=== PATIENT | male | born 1930 | race Two or more races ===

== ENCOUNTER 2018-09-05 16:36 | Inpatient (IN) | payer MEDICARE, OTHER ==
[~2018-09-05] VITALS: Ht 175.3 cm; Wt 73.9 kg
[2018-09-05] MEDS ORDERED: ACET325T53 PO ×2 (16:59)
[2018-09-05] MEDS ORDERED: LOSA25TA3 PO (16:59)
[2018-09-05] MEDS ORDERED: INSU100I26 SQ (16:59)
[2018-09-05] MEDS ORDERED: CRAN450C PO (16:59)
[2018-09-05] MEDS ORDERED: PANT20TA2 PO (16:59)
[2018-09-05] MEDS ORDERED: MAG355OR18 PO (16:59)
[2018-09-05] MEDS ORDERED: NUTR1PAC14 PO (16:59)
[2018-09-05] MEDS ORDERED: MULT-213 PO (16:59)
[2018-09-05] MEDS ORDERED: SERT50TA PO (16:59)
[2018-09-05] MEDS ORDERED: ASCO500C18 PO (16:59)
[2018-09-05] MEDS ORDERED: MEMA10TA PO (16:59)
[2018-09-05] MEDS ORDERED: TRAZ-182 PO (16:59)
[2018-09-05] MEDS ORDERED: MAGN400O6 PO (16:59)
[2018-09-05] MEDS ORDERED: DONE10TA11 PO (16:59)
[2018-09-05] MEDS ORDERED: NA P133E RC (16:59)
[2018-09-05 17:03] LABS: BASOPHILS % (AUTO) 0.2 % (0.0-2.0); EOSINOPHILS # (AUTO) 0.1 K/uL (0.0-0.7); EOSINOPHILS % (AUTO) 0.6 % (0.0-7.0); HEMATOCRIT 37.9 % (36.7-47.1); LYMPHOCYTES # (AUTO) 0.5 K/uL (20.0-40.0); LYMPHOCYTES % (AUTO) 4.9 % (20.5-51.5); MEAN CORPUSCULAR HEMOGLOBIN 29.3 uug (23.8-33.4); MEAN CORPUSCULAR HGB CONC 32 g/dL (32.5-36.3); MEAN CORPUSCULAR VOLUME 92.8 fL (73.0-96.2); MONOCYTES # (AUTO) 0.5 K/uL (2.0-10.0); MONOCYTES % (AUTO) 4.5 % (0.0-11.0); NEUTROPHILS # (AUTO) 9.9 K/uL (1.8-8.9); NEUTROPHILS % (AUTO) 89.8 % (38.5-71.5); PLATELET COUNT (AUTO) 215 K/uL (152-348); RED BLOOD CELL COUNT(AUTO) 4.08 MIL/uL (4.06-5.63)
[2018-09-05 17:07] LABS: CARBON DIOXIDE 23 mmol/L (21-32); CHLORIDE 113 mmol/L (98-107); CREATININE 1.8 mg/dL (0.6-1.3); GLUCOSE 124 mg/dL (74-106); UREA NITROGEN, BLOOD 52 mg/dL (7-18)
[2018-09-05 17:17] LABS: POTASSIUM 6.3 mmol/L (3.5-5.1)
[2018-09-05 17:19] LABS: ALANINE AMINOTRANSFERASE 43 U/L (16-63); ALKALINE PHOSPHATASE 168 U/L (50-136); ASPARTATE AMINOTRANSFERASE 26 U/L (15-37); BILIRUBIN,DIRECT 0.1 mg/dL (0.0-0.2); BILIRUBIN,TOTAL 0.3 mg/dL (0.2-1.0); TOTAL PROTEIN, SERUM 7.1 g/dL (6.4-8.2)
[2018-09-05 17:21] LABS: ETHANOL < 3 MG/DL (0-0)
[2018-09-05] MEDS ORDERED: IV NORMAL SALINE 1000 ML BAG IV ONE (17:30)
[2018-09-05 17:31] LABS: *BILIRUBIN,URIN NEGATIVE (NEGATIVE); *BLOOD, URINE NEGATIVE (NEGATIVE); *CLARITY,URINE CLEAR (CLEAR); *COLOR,URINE YELLOW (YELLOW); *KETONES,URINE NEGATIVE (NEGATIVE); *UROBILINOGEN,URINE 0.2 E.U./dl (NORMAL); LEUKOCYTE ESTERASE ,URINE NEGATIVE (NEGATIVE); NITRITE, URINE NEGATIVE (NEGATIVE); UGLUCOSE NEGATIVE (NEGATIVE)
[2018-09-05 17:38] LABS: MUCUS,URINE FEW /LPF (0-FEW); URINE AMORPHOUS URATE MODERATE /HPF; WBC,URINE 0-3 /HPF (0-3)
[2018-09-05 17:42] LABS: *AMPHETAMINE, URINE NEGATIVE (NEGATIVE); *BARBITURATE, URINE NEGATIVE (NEGATIVE); *CANNABINOID, URINE NEGATIVE (NEGATIVE); *COCCAINE, URINE NEGATIVE (NEGATIVE); *OPIATE, URINE NEGATIVE (NEGATIVE); *PHENCYCLIDINE SCREEN,URINE NEGATIVE (NEGATIVE)
[2018-09-05 18:01] LABS: CARBON DIOXIDE 25 mmol/L (21-32); CHLORIDE 114 mmol/L (98-107); CREATININE 1.8 mg/dL (0.6-1.3); GLUCOSE 114 mg/dL (74-106); UREA NITROGEN, BLOOD 53 mg/dL (7-18)
[2018-09-05 18:05] LABS: POTASSIUM 6.7 mmol/L (3.5-5.1)
[2018-09-05] MEDS ORDERED: SODIUM POLYSTYRENE SULFONATE ENEMA 30 G/120 ML BOTTLE RC ONE ×2 (18:15→18:19)
[2018-09-05] MEDS ORDERED: DEXTROSE 10 % IN WATER 250 ML BAG IV ONE (18:15)
[2018-09-05] MEDS ORDERED: DEXTROSE 50% 50 ML DISP.SYRIN IV ONE (18:15)
[2018-09-05] MEDS ORDERED: SODIUM BICARBONATE 8.4% 50 MEQ/50 ML DISP.SYRIN IV ONE ×2 (18:15→18:16)
[2018-09-05] MEDS ORDERED: CALCIUM CHLORIDE 1 GM/10 ML DISP.SYRIN IVP ONE ×2 (18:15)
[2018-09-05] MEDS ORDERED: DEXTROSE 50% 50 ML DISP.SYRIN ONE (18:15)
[2018-09-05] MEDS ORDERED: INSULIN REGULAR, HUMAN 300 UNIT/3 ML VIAL IV ONE (18:15)
[2018-09-05] MEDS ORDERED: INSULIN REGULAR, HUMAN 300 UNIT/3 ML VIAL ONE (18:20)
[2018-09-05] MEDS ORDERED: ACETAMINOPHEN 325 MG TABLET PO PRN ×2 (18:45→19:00)
[2018-09-05] MEDS ORDERED: ONDANSETRON 4 MG/2 ML VIAL IV PRN (18:45)
[2018-09-05] MEDS ORDERED: MAGNESIUM HYDROXIDE 30 ML LIQUID UDC PO PRN (18:45)
[2018-09-05] MEDS ORDERED: TEMAZEPAM 15 MG CAPSULE PO PRN (18:45)
[2018-09-05] MEDS ORDERED: LORAZEPAM 2 MG/1 ML VIAL IV PRN (18:45)
[2018-09-05] MEDS ORDERED: HYDROCODONE/APAP 5-325MG TABLET PO PRN (18:45)
[2018-09-05] MEDS ORDERED: FLEET ENEMA 133 ML BOTTLE RC PRN (19:00)
[2018-09-05] MEDS ORDERED: INSULIN REGULAR, HUMAN 300 UNIT/3 ML VIAL SQ PRN (19:00)
[2018-09-05] MEDS ORDERED: DEXTROSE 50% 50 ML DISP.SYRIN IV PRN (19:00)
[2018-09-05 20:08] VITALS: BP 101/72
[2018-09-05] MEDS: IV NS 1000 ML 1,000 ML IV PRN (20:50)
[2018-09-05] MEDS: INSULIN GLARGINE,HUM 300 UNITS/3 ML CARTRIDGE SQ SCH (21:00)
[2018-09-05 21:14] LABS: CARBON DIOXIDE 26 mmol/L (21-32); CHLORIDE 115 mmol/L (98-107); CREATININE 1.8 mg/dL (0.6-1.3); POTASSIUM 5.7 mmol/L (3.5-5.1); UREA NITROGEN, BLOOD 50 mg/dL (7-18)
[2018-09-05 21:23] LABS: GLUCOSE 51 mg/dL (74-106)
[2018-09-05] MEDS: BLOOD SUGAR DIAGNOSTIC 1 EACH STRIP VI SCH (21:27)
[2018-09-05] MEDS: DONEPEZIL 10 MG TABLET PO SCH (21:30)
[2018-09-05] MEDS: TRAZODONE 50 MG TABLET PO SCH (21:36)
[2018-09-05] MEDS ORDERED: IV D5/ 0.9% NACL 1,000 ML IV ONE (22:30)
[2018-09-05 23:30] VITALS: BP 116/66
[2018-09-06] VITALS (7 sets, daily range): BP systolic 91–136; BP diastolic 33–111
[2018-09-06] MEDS: LORAZEPAM 2 MG/1 ML VIAL IV PRN ×2 (00:23→13:04)
[2018-09-06] MEDS: PANTOPRAZOLE SODIUM 40 MG TABLET.DR PO SCH (06:09)
[2018-09-06 06:22] LABS: BASOPHILS % (AUTO) 0.1 % (0.0-2.0); EOSINOPHILS # (AUTO) 0.1 K/uL (0.0-0.7); EOSINOPHILS % (AUTO) 0.4 % (0.0-7.0); HEMOGLOBIN 10.7 g/dL (12.5-16.3); LYMPHOCYTES # (AUTO) 0.9 K/uL (20.0-40.0); LYMPHOCYTES % (AUTO) 5.5 % (20.5-51.5); MEAN CORPUSCULAR HEMOGLOBIN 29.3 uug (23.8-33.4); MEAN CORPUSCULAR HGB CONC 32 g/dL (32.5-36.3); MEAN CORPUSCULAR VOLUME 92.8 fL (73.0-96.2); MONOCYTES # (AUTO) 0.3 K/uL (2.0-10.0); MONOCYTES % (AUTO) 1.8 % (0.0-11.0); NEUTROPHILS # (AUTO) 14.4 K/uL (1.8-8.9); NEUTROPHILS % (AUTO) 92.2 % (38.5-71.5); PLATELET COUNT (AUTO) 201 K/uL (152-348); RED BLOOD CELL COUNT(AUTO) 3.66 MIL/uL (4.06-5.63); WHITE BLOOD COUNT (AUTO) 15.6 K/uL (3.6-10.2)
[2018-09-06] MEDS: BLOOD SUGAR DIAGNOSTIC 1 EACH STRIP VI SCH ×5 (06:30→21:21)
[2018-09-06 06:48] LABS: CARBON DIOXIDE 27 mmol/L (21-32); CHLORIDE 116 mmol/L (98-107); CHOLESTEROL 104 mg/dL (<200); CREATININE 1.7 mg/dL (0.6-1.3); GLUCOSE 116 mg/dL (74-106); HDL CHOLESTEROL 47 mg/dL (40-60); MAGNESIUM 1.7 mg/dL (1.8-2.4); PHOSPHOROUS 3.5 mg/dL (2.5-4.9); POTASSIUM 6.1 mmol/L (3.5-5.1); TRIGLYCERIDES 49 MG/DL (30-150); UREA NITROGEN, BLOOD 48 mg/dL (7-18)
[2018-09-06] MEDS ORDERED: ACETAMINOPHEN 325 MG TABLET PO SCH (09:00)
[2018-09-06] MEDS: MULTIVITAMINS,THERAPEUTIC TABLET PO SCH (09:02)
[2018-09-06] MEDS: SERTRALINE HCL 50 MG TABLET PO SCH (09:02)
[2018-09-06] MEDS: FAMOTIDINE 20 MG TABLET PO SCH (09:03)
[2018-09-06] MEDS: ASCORBIC ACID 500 MG TABLET PO SCH (09:03)
[2018-09-06] MEDS: MEMANTINE HCL 10 MG TABLET PO SCH ×2 (09:03→17:27)
[2018-09-06] MEDS: PROTEIN SUPPLEMENT (PROSTAT) 30 ML LIQUID PO SCH ×2 (09:06→17:27)
[2018-09-06] MEDS ORDERED: SODIUM POLYSTYRENE SULFONATE 15 G/60 ML LIQUID UDC PO ONE (09:30)
[2018-09-06] MEDS ORDERED: ALBUTEROL SULFATE 2.5 MG/3 ML NEBU NEB ONE (09:45)
[2018-09-06] MEDS ORDERED: MAGNESIUM SULFATE/D5W 100 ML IV SCH (10:00)
[2018-09-06] MEDS: IV NS 1000 ML 1,000 ML IV PRN ×2 (10:32→19:01)
[2018-09-06 16:10] LABS: CARBON DIOXIDE 19 mmol/L (21-32); CHLORIDE 115 mmol/L (98-107); GLUCOSE 127 mg/dL (74-106); POTASSIUM 4.4 mmol/L (3.5-5.1); UREA NITROGEN, BLOOD 50 mg/dL (7-18)
[2018-09-06] MEDS ORDERED: METOPROLOL TARTRATE 25 MG TABLET PO SCH (17:00)
[2018-09-06] MEDS ORDERED: METOPROLOL TARTRATE 5 MG/5 ML VIAL IVP ONE (17:01)
[2018-09-06] MEDS: DONEPEZIL 10 MG TABLET PO SCH (20:33)
[2018-09-06] MEDS: TRAZODONE 50 MG TABLET PO SCH (20:46)
[2018-09-06] MEDS: INSULIN GLARGINE,HUM 300 UNITS/3 ML CARTRIDGE SQ SCH (21:23)
[2018-09-07 04:00] VITALS: BP 116/48
[2018-09-07 04:48] VITALS: BP 116/48
[2018-09-07] MEDS: IV NS 1000 ML 1,000 ML IV PRN (05:08)
[2018-09-07] MEDS: PANTOPRAZOLE SODIUM 40 MG TABLET.DR PO SCH (06:17)
[2018-09-07] MEDS: BLOOD SUGAR DIAGNOSTIC 1 EACH STRIP VI SCH ×4 (06:18→20:27)
[2018-09-07 06:35] LABS: CARBON DIOXIDE 26 mmol/L (21-32); CHLORIDE 116 mmol/L (98-107); GLUCOSE 54 mg/dL (74-106); MAGNESIUM 1.7 mg/dL (1.8-2.4); UREA NITROGEN, BLOOD 52 mg/dL (7-18)
[2018-09-07 07:12] VITALS: BP 105/60
[2018-09-07] MEDS ORDERED: CARVEDILOL 3.125 MG TABLET PO SCH (08:00)
[2018-09-07] MEDS: ASCORBIC ACID 500 MG TABLET PO SCH (08:38)
[2018-09-07] MEDS: MEMANTINE HCL 10 MG TABLET PO SCH (08:38)
[2018-09-07] MEDS: SERTRALINE HCL 50 MG TABLET PO SCH (08:38)
[2018-09-07] MEDS: FAMOTIDINE 20 MG TABLET PO SCH (08:38)
[2018-09-07] MEDS: MULTIVITAMINS,THERAPEUTIC TABLET PO SCH (08:39)
[2018-09-07] MEDS: PROTEIN SUPPLEMENT (PROSTAT) 30 ML LIQUID PO SCH ×2 (08:45→16:46)
[2018-09-07] MEDS ORDERED: MAGNESIUM SULFATE/D5W 100 ML IV SCH (09:15)
[2018-09-07] MEDS: AMIODARONE HCL 200 MG TABLET PO SCH ×2 (09:26→20:27)
[2018-09-07 12:35] VITALS: BP 118/64
[2018-09-07 15:28] VITALS: BP 135/64
[2018-09-07] MEDS: MEMANTINE HCL 5 MG TABLET PO SCH (16:46)
[2018-09-07] MEDS: IV D5/ 0.9% NACL 1,000 ML IV PRN (18:29)
[2018-09-07 20:26] VITALS: BP 138/77
[2018-09-07] MEDS: TRAZODONE 50 MG TABLET PO SCH (20:27)
[2018-09-07] MEDS: DONEPEZIL 10 MG TABLET PO SCH (20:27)
[2018-09-07] MEDS: LORAZEPAM 2 MG/1 ML VIAL IV PRN (21:53)
[2018-09-08 00:14] VITALS: BP 133/70
[2018-09-08 04:24] VITALS: BP 143/59
[2018-09-08 06:37] LABS: CARBON DIOXIDE 26 mmol/L (21-32); CHLORIDE 115 mmol/L (98-107); GLUCOSE 83 mg/dL (74-106); MAGNESIUM 1.8 mg/dL (1.8-2.4); POTASSIUM 4.7 mmol/L (3.5-5.1); UREA NITROGEN, BLOOD 52 mg/dL (7-18)
[2018-09-08] MEDS: PANTOPRAZOLE SODIUM 40 MG TABLET.DR PO SCH (06:37)
[2018-09-08] MEDS: IV D5/ 0.9% NACL 1,000 ML IV PRN ×2 (06:37→18:46)
[2018-09-08] MEDS: BLOOD SUGAR DIAGNOSTIC 1 EACH STRIP VI SCH ×4 (06:38→20:19)
[2018-09-08] MEDS: FAMOTIDINE 20 MG TABLET PO SCH (08:38)
[2018-09-08] MEDS: MEMANTINE HCL 5 MG TABLET PO SCH ×2 (08:38→17:39)
[2018-09-08] MEDS: MULTIVITAMINS,THERAPEUTIC TABLET PO SCH (08:38)
[2018-09-08] MEDS: ASCORBIC ACID 500 MG TABLET PO SCH (08:39)
[2018-09-08] MEDS: hydrALAZINE HCL 10 MG TABLET PO PRN (08:39)
[2018-09-08] MEDS: SERTRALINE HCL 50 MG TABLET PO SCH (08:39)
[2018-09-08] MEDS: AMIODARONE HCL 200 MG TABLET PO SCH ×3 (08:40→21:00)
[2018-09-08] MEDS: PROTEIN SUPPLEMENT (PROSTAT) 30 ML LIQUID PO SCH ×2 (08:49→17:39)
[2018-09-08 09:07] LABS: BASOPHILS % (AUTO) 0.2 % (0.0-2.0); EOSINOPHILS # (AUTO) 0.2 K/uL (0.0-0.7); EOSINOPHILS % (AUTO) 2.7 % (0.0-7.0); HEMATOCRIT 31.5 % (36.7-47.1); HEMOGLOBIN 10.1 g/dL (12.5-16.3); LYMPHOCYTES # (AUTO) 0.9 K/uL (20.0-40.0); LYMPHOCYTES % (AUTO) 11.8 % (20.5-51.5); MEAN CORPUSCULAR HEMOGLOBIN 30.1 uug (23.8-33.4); MEAN CORPUSCULAR HGB CONC 32 g/dL (32.5-36.3); MEAN CORPUSCULAR VOLUME 93.5 fL (73.0-96.2); MONOCYTES # (AUTO) 0.4 K/uL (2.0-10.0); MONOCYTES % (AUTO) 5.5 % (0.0-11.0); NEUTROPHILS # (AUTO) 6.4 K/uL (1.8-8.9); NEUTROPHILS % (AUTO) 79.8 % (38.5-71.5); PLATELET COUNT (AUTO) 183 K/uL (152-348); RED BLOOD CELL COUNT(AUTO) 3.37 MIL/uL (4.06-5.63)
[2018-09-08 11:00] VITALS: BP 150/83
[2018-09-08] MEDS: ASPIRIN 81 MG TAB.CHEW PO SCH (12:30)
[2018-09-08] MEDS: LORAZEPAM 2 MG/1 ML VIAL IV PRN (15:59)
[2018-09-08 16:00] VITALS: BP 166/71
[2018-09-08 20:00] VITALS: BP 145/70
[2018-09-08] MEDS: TRAZODONE 50 MG TABLET PO SCH (20:16)
[2018-09-08] MEDS: DONEPEZIL 10 MG TABLET PO SCH (20:16)
[2018-09-09] VITALS: BP 140/75
[2018-09-09 04:00] VITALS: BP 161/80
[2018-09-09] MEDS: hydrALAZINE HCL 10 MG TABLET PO PRN (04:16)
[2018-09-09] MEDS: LORAZEPAM 2 MG/1 ML VIAL IV PRN ×2 (05:44→12:08)
[2018-09-09] MEDS: PANTOPRAZOLE SODIUM 40 MG TABLET.DR PO SCH (06:18)
[2018-09-09] MEDS: BLOOD SUGAR DIAGNOSTIC 1 EACH STRIP VI SCH ×2 (06:20→12:22)
[2018-09-09 06:44] LABS: BASOPHILS % (AUTO) 0.1 % (0.0-2.0); EOSINOPHILS # (AUTO) 0.1 K/uL (0.0-0.7); EOSINOPHILS % (AUTO) 0.7 % (0.0-7.0); HEMATOCRIT 35.8 % (36.7-47.1); HEMOGLOBIN 11.4 g/dL (12.5-16.3); LYMPHOCYTES # (AUTO) 0.6 K/uL (20.0-40.0); LYMPHOCYTES % (AUTO) 5.6 % (20.5-51.5); MEAN CORPUSCULAR HEMOGLOBIN 29.8 uug (23.8-33.4); MEAN CORPUSCULAR HGB CONC 32 g/dL (32.5-36.3); MEAN CORPUSCULAR VOLUME 93.7 fL (73.0-96.2); MONOCYTES # (AUTO) 0.4 K/uL (2.0-10.0); MONOCYTES % (AUTO) 3.8 % (0.0-11.0); NEUTROPHILS # (AUTO) 9.2 K/uL (1.8-8.9); NEUTROPHILS % (AUTO) 89.8 % (38.5-71.5); PLATELET COUNT (AUTO) 201 K/uL (152-348); RED BLOOD CELL COUNT(AUTO) 3.82 MIL/uL (4.06-5.63); WHITE BLOOD COUNT (AUTO) 10.3 K/uL (3.6-10.2)
[2018-09-09 07:10] VITALS: BP 154/55
[2018-09-09 07:26] LABS: CARBON DIOXIDE 23 mmol/L (21-32); CHLORIDE 116 mmol/L (98-107); GLUCOSE 114 mg/dL (74-106); POTASSIUM 4.5 mmol/L (3.5-5.1)
[2018-09-09 07:27] LABS: CREATININE 1.9 mg/dL (0.6-1.3); UREA NITROGEN, BLOOD 48 mg/dL (7-18)
[2018-09-09] MEDS: MULTIVITAMINS,THERAPEUTIC TABLET PO SCH (08:14)
[2018-09-09] MEDS: ASCORBIC ACID 500 MG TABLET PO SCH (08:15)
[2018-09-09] MEDS: SERTRALINE HCL 50 MG TABLET PO SCH (08:15)
[2018-09-09] MEDS: AMIODARONE HCL 200 MG TABLET PO SCH (08:15)
[2018-09-09] MEDS: ASPIRIN 81 MG TAB.CHEW PO SCH (08:15)
[2018-09-09] MEDS: FAMOTIDINE 20 MG TABLET PO SCH (08:15)
[2018-09-09] MEDS: MEMANTINE HCL 5 MG TABLET PO SCH (08:15)
[2018-09-09] MEDS: PROTEIN SUPPLEMENT (PROSTAT) 30 ML LIQUID PO SCH (08:22)
[2018-09-09] MEDS: IV D5/ 0.9% NACL 1,000 ML IV PRN (09:29)
[2018-09-09] MEDS ORDERED: ATORVASTATIN 10 MG TABLET PO SCH (09:45)
[2018-09-09] MEDS ORDERED: MEGESTROL ACETATE 400 MG/10 ML LIQUID UDC PO SCH (09:45)
[2018-09-09] MEDS ORDERED: CARVEDILOL 3.125 MG TABLET PO SCH (10:45)
[2018-09-09 12:21] VITALS: BP 154/79
== END 2018-09-09 16:20 | DRG 682 ==
LOC: ER 16:39 → TELE3 19:31
PROVIDERS: ADMIT Nurse Practitioner Acute Care; ATTEND Nurse Practitioner Acute Care
DX: N17.0 Acute kidney failure with tubular necrosis (principal); G93.41 Metabolic encephalopathy; I21.A1 Myocardial infarction type 2; E44.1 Mild protein-calorie malnutrition; E87.0 Hyperosmolality and hypernatremia; E87.5 Hyperkalemia; E11.22 Type 2 diabetes mellitus with diabetic chronic kidney disease; I12.9 Hypertensive chronic kidney disease with stage 1 through stage 4 chronic kidney disease, or unspecified chronic kidney disease; N18.9 Chronic kidney disease, unspecified; Z79.84 Long term (current) use of oral hypoglycemic drugs; G30.9 Alzheimer's disease, unspecified; F02.80 Dementia in other diseases classified elsewhere, unspecified severity, without behavioral disturbance, psychotic disturbance, mood disturbance, and anxiety; E11.51 Type 2 diabetes mellitus with diabetic peripheral angiopathy without gangrene; I48.0 Paroxysmal atrial fibrillation; F29 Unspecified psychosis not due to a substance or known physiological condition; Z79.4 Long term (current) use of insulin; E11.649 Type 2 diabetes mellitus with hypoglycemia without coma; D72.829 Elevated white blood cell count, unspecified; I25.10 Atherosclerotic heart disease of native coronary artery without angina pectoris; Z79.899 Other long term (current) drug therapy; K21.9 Gastro-esophageal reflux disease without esophagitis; E87.8 Other disorders of electrolyte and fluid balance, not elsewhere classified
CPT/HCPCS: 36415; 70030-TC; 70450; 71045; 80307; 83735; 84100; 85025; 92526; 92610; 93005; 93307; 97110; 97530; A4663; C1758; G0378; G0480; J1815; J2060; J2405; J3475; J3490; J7030; J7040; J7042; J8999

== ENCOUNTER 2018-09-09 17:39 | Inpatient (IN) | payer MEDICARE, OTHER ==
[~2018-09-09] VITALS: Ht 170.2 cm; Wt 73.9 kg
--- NOTE | 2018-09-09 16:45 | NUR ---
Gps/Administrative Dietitian- Received patient via bed in no distress. Report received from ELENITA Garcia. Patient noted stiffness to all extremities, will not open his eye, moans, grabs during repositioning and assessment. Poor skin turgor, bilateral shins with scabs, left hand scabs, brusing to right am, oral mucosa dry, no dentures noted . Upon initial face to face encounter with patient, unable to get any informations from him, confused, does not rreposnd to name when called, moans during repositioning . Incontinent of bowel and bladder, good hygiene provided, repositioned for comfort, heels floated. Coccygeal area redness, no open sore z-guard cream applied..H/L to left ac. intact.Mao Walters DNP was informed of the admission .
[~2018-09-09 17:39] MED LIST: ACET325T53 PO; ASCO500C18 PO; DONE10TA11 PO; INSU100I26 SQ; LOSA25TA3 PO; MAG355OR18 PO; MAGN400O6 PO; MEMA10TA PO; MULT-213 PO; NA P133E RC; NUTR1PAC14 PO; PANT20TA2 PO; SERT50TA PO; TRAZ-182 PO
[2018-09-09] MEDS ORDERED: MAGNESIUM HYDROXIDE 30 ML LIQUID UDC PO PRN (18:00)
[2018-09-09] MEDS ORDERED: MAG HYDROX/AL HYDROX/SIMETH 30 ML LIQUID UDC PO PRN (18:00)
[2018-09-09] MEDS ORDERED: ACETAMINOPHEN 325 MG TABLET PO PRN (18:00)
[2018-09-09] MEDS ORDERED: TEMAZEPAM 7.5 MG CAPSULE PO PRN (18:00)
[2018-09-09] MEDS ORDERED: LORAZEPAM 0.5 MG TABLET PO PRN (18:00)
--- NOTE | 2018-09-09 19:20 | NUR ---
RECEIVED PT ON BED. PT RESPOND TO STIMULI. PT MOAN . PT NONVERBAL. PT IN NO ACUTE DISTRESS. SAFETY AND COMFORT PROVIDED. WILL CONTINUE TO MONITOR.
[2018-09-09 20:48] VITALS: BP 148/68
--- NOTE | 2018-09-10 02:30 | NUR ---
ATIVAN WASTED IN PYXIS WITH ANOTHER RN. . IT WAS UNDO IN EMAR BECAUSE PT SPIT IT OUT. PT AGITATED, TRYING TO STRIKE AND KICK US WHEN CHANGING HIM AND REPOSITIONING HIM. SAFETY AND COMFORT PROVIDED.WILL CONTINUE TO MONITOR.
--- NOTE | 2018-09-10 06:27 | NUR ---
PT SLEPT 7.3 HOURS. PT SHOWS NO SIGNS OF ACUTE DISTRESS. PT TRYING TO HIT AND KICK STAFFS WHEN TRYING TO REPOSITIONED HIM AND CHANGING HIS DIAPER. BLOOD SUGAR 93. SAFETY AND COMFORT PROVIDED. WILL ENDORSE ACCORDINGLY TO INCOMING NURSE FOR CONTINUITY OF CARE.
[2018-09-10 07:30] VITALS: BP 149/73
[2018-09-10] MEDS: QUETIAPINE FUMARATE 25 MG TABLET PO SCH ×2 (13:22→16:36)
[2018-09-10] MEDS ORDERED: DEXTROSE 50% 50 ML DISP.SYRIN IV PRN (13:30)
[2018-09-10 15:54] VITALS: BP 132/84
[2018-09-10] MEDS: BLOOD SUGAR DIAGNOSTIC 1 EACH STRIP VI SCH ×2 (16:30→20:43)
--- NOTE | 2018-09-10 16:56 | NUR ---
Firearms Report: construction worker completed a submitted a [employer] firearms report for a 5250 gravely disabled certification. A copy of report has been placed in patient chart.
[2018-09-10 20:10] VITALS: BP 150/60
[2018-09-10] MEDS: TRAZODONE 50 MG TABLET PO SCH (20:38)
[2018-09-11] MEDS: BLOOD SUGAR DIAGNOSTIC 1 EACH STRIP VI SCH ×4 (06:38→21:30)
[2018-09-11 07:30] VITALS: BP 164/81
[2018-09-11] MEDS: QUETIAPINE FUMARATE 25 MG TABLET PO SCH ×3 (09:00→17:00)
[2018-09-11] MEDS: SERTRALINE HCL 50 MG TABLET PO SCH (09:00)
[2018-09-11 11:12] LABS: *BILIRUBIN,URIN NEGATIVE (NEGATIVE); *BLOOD, URINE 3+ (NEGATIVE); *CLARITY,URINE CLEAR (CLEAR); *COLOR,URINE YELLOW (YELLOW); *KETONES,URINE NEGATIVE (NEGATIVE); LEUKOCYTE ESTERASE ,URINE 2+ (NEGATIVE); NITRITE, URINE NEGATIVE (NEGATIVE); PH,URINE >=9.0 (5.0-8.0); UGLUCOSE NEGATIVE (NEGATIVE)
[2018-09-11 11:49] LABS: BACTERIA,URINE MANY /HPF (NONE SEEN); SQUAMOUS EPITHELIAL CELL,UR NONE SEEN /HPF (NONE SEEN)
[2018-09-11 11:54] LABS: TRIPLE PHOSPHATE CRYSTAL,UR FEW /HPF (NONE SEEN)
--- NOTE | 2018-09-11 12:34 | NUR ---
Initial Discharge Planning Note: Patient is an 88 year old male who currently lives at [facility] [[address] [place] [address]; ]. Patient requires almost total care and family is interested in patient returning to facility once he's ready for discharge. Patient will likely return to [facility]. Brickmason Helper will continue to meet with patient and collaborate with patient, family, and MD on a safe and proper discharge.
[2018-09-11 15:41] VITALS: BP 119/81
[2018-09-11] MEDS ORDERED: FLEET ENEMA 133 ML BOTTLE RC PRN (17:45)
[2018-09-11] MEDS ORDERED: ACETAMINOPHEN 325 MG TABLET PO PRN (17:45)
[2018-09-11 20:12] VITALS: BP 145/65
[2018-09-11] MEDS: TRAZODONE 50 MG TABLET PO SCH (21:00)
--- NOTE | 2018-09-11 22:00 | NUR ---
received to care, asleep, in bed. is able to be awakened, but falls righr back to sleep. all medications were held. as of 2199, he remains asleep. no distress noted.
[2018-09-12] MEDS: BLOOD SUGAR DIAGNOSTIC 1 EACH STRIP VI SCH ×4 (06:32→21:30)
[2018-09-12 07:30] VITALS: BP 167/59
[2018-09-12 07:39] LABS: BASOPHILS % (AUTO) 0.1 % (0.0-2.0); EOSINOPHILS % (AUTO) 0.1 % (0.0-7.0); HEMATOCRIT 36.7 % (36.7-47.1); HEMOGLOBIN 11.7 g/dL (12.5-16.3); LYMPHOCYTES # (AUTO) 0.6 K/uL (20.0-40.0); LYMPHOCYTES % (AUTO) 4.5 % (20.5-51.5); MEAN CORPUSCULAR HEMOGLOBIN 29.4 uug (23.8-33.4); MEAN CORPUSCULAR HGB CONC 32 g/dL (32.5-36.3); MEAN CORPUSCULAR VOLUME 92.2 fL (73.0-96.2); MONOCYTES # (AUTO) 0.8 K/uL (2.0-10.0); MONOCYTES % (AUTO) 5.7 % (0.0-11.0); NEUTROPHILS % (AUTO) 89.6 % (38.5-71.5); PLATELET COUNT (AUTO) 279 K/uL (152-348); RED BLOOD CELL COUNT(AUTO) 3.97 MIL/uL (4.06-5.63); WHITE BLOOD COUNT (AUTO) 13.4 K/uL (3.6-10.2)
[2018-09-12 08:05] LABS: THYROID STIMULATING HORMONE 1.488 mIU/mL (0.358-3.740)
[2018-09-12 08:19] LABS: ALANINE AMINOTRANSFERASE 43 U/L (16-63); ALKALINE PHOSPHATASE 151 U/L (50-136); ASPARTATE AMINOTRANSFERASE 55 U/L (15-37); CARBON DIOXIDE 21 mmol/L (21-32); CHLORIDE 121 mmol/L (98-107); CREATININE 2.5 mg/dL (0.6-1.3); GLUCOSE 119 mg/dL (74-106); PHOSPHOROUS 4.2 mg/dL (2.5-4.9); POTASSIUM 4.4 mmol/L (3.5-5.1); TOTAL PROTEIN, SERUM 6.5 g/dL (6.4-8.2); UREA NITROGEN, BLOOD 72 mg/dL (7-18)
[2018-09-12] MEDS ORDERED: Medication Not On Formulary EA (Multivitamins W-Minerals (Multivitamin With Minerals) 1 PO SCH (09:00)
[2018-09-12] MEDS ORDERED: Medication Not On Formulary EA (Ascorbic Acid (Vitamin C) 500 MG) PO SCH (09:00)
[2018-09-12] MEDS ORDERED: NUTRITIONAL SUPPLEMENT PO SCH (09:00)
[2018-09-12] MEDS: ASCORBIC ACID 500 MG TABLET PO SCH (09:41)
[2018-09-12] MEDS: MULTIVIT, IRON, MIN NO. 8, FA TABLET PO SCH (09:41)
[2018-09-12] MEDS: SERTRALINE HCL 50 MG TABLET PO SCH (09:41)
[2018-09-12] MEDS: ASPIRIN EC 81 MG TABLET.DR PO SCH (09:42)
[2018-09-12] MEDS: QUETIAPINE FUMARATE 25 MG TABLET PO SCH ×3 (09:42→16:56)
[2018-09-12] MEDS: AMIODARONE HCL 200 MG TABLET PO SCH (13:22)
[2018-09-12 16:00] VITALS: BP 145/67
[2018-09-12 20:23] VITALS: BP 151/62
[2018-09-12] MEDS: TRAZODONE 50 MG TABLET PO SCH (21:00)
[2018-09-12] MEDS ORDERED: CEphaleXIN 500 MG CAPSULE PO SCH (21:00)
[2018-09-12] MEDS ORDERED: CEphaleXIN 250 MG CAPSULE PO SCH (21:30)
--- NOTE | 2018-09-12 22:00 | NUR ---
received to care, asleep, in bed, snoring loudly at times, difficult to awaken. vital signs are wnl. all medications were held, as pt is unable to take anything PO, at this time. insulin coverage was also held, for the same reason. as of 0, he continues to sleep. no distress noted. will continue to monitor closely.
[2018-09-12] MEDS: INSULIN REGULAR, HUMAN 300 UNIT/3 ML VIAL SQ PRN (22:38)
[2018-09-12] MEDS ORDERED: CEphaleXIN 250 MG CAPSULE ONE (22:49)
[2018-09-13] MEDS ORDERED: CEFTRIAXONE 1 G VIAL IV SCH (01:45)
[2018-09-13] MEDS ORDERED: IV NS 1000 ML 1,000 ML IV ONE (01:45)
[2018-09-13] MEDS ORDERED: CEFTRIAXONE 1 G in IV DEXTROSE 5% 50 ML IV SCH (02:15)
[2018-09-13] MEDS ORDERED: CEFTRIAXONE 1 G VIAL ONE (02:19)
--- NOTE | 2018-09-13 04:18 | NUR ---
GPS/NSG 2139 Obtained order from Jitendra MAINFRAME SYSTEMS ENGINEER Telephone order Keflex 500 mg BID po times seven days. MAINFRAME SYSTEMS ENGINEER aware of BUN 72. Pharmacy adjusted antibiotic order to protocol dose. Nurse unable to administer per patient sedated. Contacted physician, new orders given at 2240 IV Fluids NS at 75cc/hr and start IV antibiotic Rocephyn 1 GM IV Q24 hours and transfer to telemetry if necessary. Transfer consulted with Nursing micrographics services supervisor as well as IV orders, Physician cannoneer called through exchange at 0230 to verify orders after reviewing labs (bmp results). 0345 Dr. Weir called back and verified previous order. 0400 Patient NS IV started @75cc/hr with Rocephyn 1 GM IVPB. Patient to be transferred to telemetry in a.m. when a 1:1 is available pending psychiatrist notification/approval.
[2018-09-13] MEDS: BLOOD SUGAR DIAGNOSTIC 1 EACH STRIP VI SCH ×2 (06:39→11:05)
--- NOTE | 2018-09-13 07:16 | NUR ---
continues to sleep. no distress noted. report given to oncoming shift.
[2018-09-13 07:42] LABS: CARBON DIOXIDE 24 mmol/L (21-32); CHLORIDE 124 mmol/L (98-107); CREATININE 2.4 mg/dL (0.6-1.3); GLUCOSE 140 mg/dL (74-106); MAGNESIUM 2.1 mg/dL (1.8-2.4); PHOSPHOROUS 3.2 mg/dL (2.5-4.9); POTASSIUM 4.1 mmol/L (3.5-5.1)
[2018-09-13 07:51] LABS: UREA NITROGEN, BLOOD 84 mg/dL (7-18)
[2018-09-13] MEDS: MULTIVIT, IRON, MIN NO. 8, FA TABLET PO SCH (09:23)
[2018-09-13] MEDS: ASPIRIN EC 81 MG TABLET.DR PO SCH (09:23)
[2018-09-13] MEDS: QUETIAPINE FUMARATE 25 MG TABLET PO SCH (09:23)
[2018-09-13] MEDS: ASCORBIC ACID 500 MG TABLET PO SCH (09:23)
[2018-09-13] MEDS: SERTRALINE HCL 50 MG TABLET PO SCH (09:23)
[2018-09-13] MEDS: AMIODARONE HCL 200 MG TABLET PO SCH (09:25)
[2018-09-13 09:33] LABS: BASOPHILS % (AUTO) 0.2 % (0.0-2.0); EOSINOPHILS # (AUTO) 0.1 K/uL (0.0-0.7); EOSINOPHILS % (AUTO) 0.5 % (0.0-7.0); HEMATOCRIT 35.8 % (36.7-47.1); HEMOGLOBIN 11.5 g/dL (12.5-16.3); LYMPHOCYTES # (AUTO) 0.7 K/uL (20.0-40.0); LYMPHOCYTES % (AUTO) 5.1 % (20.5-51.5); MEAN CORPUSCULAR HEMOGLOBIN 29.7 uug (23.8-33.4); MEAN CORPUSCULAR HGB CONC 32 g/dL (32.5-36.3); MEAN CORPUSCULAR VOLUME 92.4 fL (73.0-96.2); MONOCYTES # (AUTO) 0.7 K/uL (2.0-10.0); MONOCYTES % (AUTO) 4.6 % (0.0-11.0); NEUTROPHILS # (AUTO) 12.9 K/uL (1.8-8.9); NEUTROPHILS % (AUTO) 89.6 % (38.5-71.5); PLATELET COUNT (AUTO) 289 K/uL (152-348); RED BLOOD CELL COUNT(AUTO) 3.87 MIL/uL (4.06-5.63); WHITE BLOOD COUNT (AUTO) 14.4 K/uL (3.6-10.2)
[2018-09-13] MEDS: INSULIN REGULAR, HUMAN 300 UNIT/3 ML VIAL SQ PRN (11:07)
--- NOTE | 2018-09-13 11:10 | NUR ---
Report given to Fadi Knox all questions answered. patient will be taken via bed with admitting DX : Acute [place]. under telemetry monitoring. Patient not on hold any longer as ordered by psychiatrist.
--- NOTE | 2018-09-13 11:24 | NUR ---
DCD documentation and legal documentation done by charge R.N. Patient will be going with patent IV left hand.
[2018-09-13] MEDS ORDERED: CEFT1FRO2 IV (13:04)
[2018-09-13] MEDS ORDERED: TRAZ-252 GT (13:04)
[2018-09-13] MEDS ORDERED: MAG-83 PO (13:04)
[2018-09-13] MEDS ORDERED: SERT50TA PO (13:04)
[2018-09-13] MEDS ORDERED: NA P133E RC (13:04)
[2018-09-13] MEDS ORDERED: AMIO100T4 PO (13:04)
[2018-09-13] MEDS ORDERED: [UNRECOGNIZED DRUG - CODE] PO (13:04)
[2018-09-13] MEDS ORDERED: MAGN400O6 PO (13:04)
[2018-09-13] MEDS ORDERED: ASPI81TA31 PO (13:04)
[2018-09-13] MEDS ORDERED: MV-M1TAB2 PO (13:04)
[2018-09-13] MEDS ORDERED: MAG355OR18 PO (13:04)
[2018-09-13] MEDS ORDERED: TRAZODONE 50 MG TABLET PO SCH (21:00)
== END 2018-09-13 11:00 | disposition short-term general hospital (02) | DRG 885 ==
LOC: GPS 17:39
PROVIDERS: ADMIT Psychiatry & Neurology Psychiatry; ATTEND Internal Medicine
DX: F29 Unspecified psychosis not due to a substance or known physiological condition (principal); N18.3 Chronic kidney disease, stage 3 (moderate); N17.9 Acute kidney failure, unspecified; G93.41 Metabolic encephalopathy; E44.1 Mild protein-calorie malnutrition; E87.0 Hyperosmolality and hypernatremia; E87.5 Hyperkalemia; E11.22 Type 2 diabetes mellitus with diabetic chronic kidney disease; I12.9 Hypertensive chronic kidney disease with stage 1 through stage 4 chronic kidney disease, or unspecified chronic kidney disease; Z79.4 Long term (current) use of insulin; I48.0 Paroxysmal atrial fibrillation; F03.90 Unspecified dementia, unspecified severity, without behavioral disturbance, psychotic disturbance, mood disturbance, and anxiety; K21.9 Gastro-esophageal reflux disease without esophagitis; F32.9 Major depressive disorder, single episode, unspecified; D72.829 Elevated white blood cell count, unspecified
CPT/HCPCS: 36415; 70030-TC; 83735; 84100; 84443; 85025; 87086; 97110; 97530; J0696; J1815; J7030; J7060

== ENCOUNTER 2018-09-13 11:58 | Inpatient (IN) | payer MEDICARE, OTHER ==
[~2018-09-13] VITALS: Ht 170.2 cm; Wt 71.3 kg
--- NOTE | 2018-09-13 01:00 | NUR ---
HS CARE DONE. CHANGED DIAPER & REPOSITIONED W/ HOB ELEVATED.
[~2018-09-13 11:58] MED LIST changes: -DONE10TA11 PO; -INSU100I26 SQ; -LOSA25TA3 PO; -MEMA10TA PO; -SERT50TA PO; -TRAZ-182 PO
[2018-09-13 12:00] VITALS: BP 164/73
--- NOTE | 2018-09-13 12:00 | NUR ---
Discharge Note: Due to medical concerns, patient was transferred to medical floor and [facility] Patient no longer on a psychiatric hold. Case management to continue to follow up with patient.
[2018-09-13] MEDS ORDERED: MAG-83 PO (13:04)
[2018-09-13] MEDS ORDERED: ASPI81TA31 PO (13:04)
[2018-09-13] MEDS ORDERED: AMIO100T4 PO (13:04)
[2018-09-13] MEDS ORDERED: SERT50TA PO (13:04)
[2018-09-13] MEDS ORDERED: MV-M1TAB2 PO (13:04)
[2018-09-13] MEDS ORDERED: [UNRECOGNIZED DRUG - CODE] PO (13:04)
[2018-09-13] MEDS ORDERED: TRAZ-252 GT (13:04)
[2018-09-13] MEDS ORDERED: CEFT1FRO2 IV (13:04)
[2018-09-13] MEDS ORDERED: MAGN400O6 PO (13:04)
[2018-09-13] MEDS ORDERED: NA P133E RC (13:04)
[2018-09-13] MEDS ORDERED: MAG355OR18 PO (13:04)
[2018-09-13] MEDS ORDERED: IV D5W 1000ML 1,000 ML IV ONE (13:45)
[2018-09-13] MEDS ORDERED: ONDANSETRON 4 MG/2 ML VIAL IV PRN (14:45)
[2018-09-13 15:22] VITALS: BP 168/66
[2018-09-13 17:00] VITALS: BP 170/78
[2018-09-13] MEDS: CARVEDILOL 6.25 MG TABLET PO SCH (17:27)
[2018-09-13] MEDS ORDERED: CLONIDINE HCL 0.1 MG TABLET PO PRN (17:45)
[2018-09-13] MEDS ORDERED: LEVOFLOXACIN 250MG /D5W 250 MG in PREMIXED 1 EACH IV SCH (17:45)
--- NOTE | 2018-09-13 20:00 | NUR ---
RECEIVED PT. OPENS HIS EYES TO VERBAL STIMULI, FOLLOWS TO SIMPLE COMMAND. ON RM AIR W/ O2 SAT OF 96%. IVF D5W @ 80CC/HR ON L HAND , NO SIGNS OF INFILTRATION. REPOSITIONED ON HIS SIDE W/ HOB ELEVATED. AFEBRILE. NOT IN ANY DISTRESS.
[2018-09-13 20:24] VITALS: BP 145/66
[2018-09-13] MEDS: CEFTRIAXONE 1 G in IV DEXTROSE 5% 50 ML IV SCH (20:51)
[2018-09-13] MEDS: AMLODIPINE 5 MG TABLET PO SCH (20:52)
[2018-09-13] MEDS: TRAZODONE 50 MG TABLET PO SCH (20:53)
[2018-09-13] MEDS: DOCUSATE SODIUM 100 MG CAPSULE PO SCH (20:53)
[2018-09-14 00:08] VITALS: BP 116/77
[2018-09-14 04:39] VITALS: BP 156/63
--- NOTE | 2018-09-14 06:00 | NUR ---
AM CARE DONE, HAD MOD. SOFT BROWNISH STOOL. REMAINS INCONTINENT OF URINE. HEP LOCK ON L HAND INTACT & PATENT.
[2018-09-14] MEDS: PANTOPRAZOLE SODIUM 40 MG TABLET.DR PO SCH (06:27)
[2018-09-14 07:19] LABS: BASOPHILS % (AUTO) 0.2 % (0.0-2.0); EOSINOPHILS # (AUTO) 0.3 K/uL (0.0-0.7); EOSINOPHILS % (AUTO) 2.2 % (0.0-7.0); HEMATOCRIT 37.5 % (36.7-47.1); HEMOGLOBIN 11.8 g/dL (12.5-16.3); LYMPHOCYTES # (AUTO) 0.7 K/uL (20.0-40.0); MEAN CORPUSCULAR HEMOGLOBIN 29.3 uug (23.8-33.4); MEAN CORPUSCULAR HGB CONC 32 g/dL (32.5-36.3); MEAN CORPUSCULAR VOLUME 93.2 fL (73.0-96.2); MONOCYTES # (AUTO) 0.5 K/uL (2.0-10.0); MONOCYTES % (AUTO) 4.3 % (0.0-11.0); NEUTROPHILS # (AUTO) 10.6 K/uL (1.8-8.9); NEUTROPHILS % (AUTO) 87.3 % (38.5-71.5); PLATELET COUNT (AUTO) 300 K/uL (152-348); RED BLOOD CELL COUNT(AUTO) 4.03 MIL/uL (4.06-5.63); WHITE BLOOD COUNT (AUTO) 12.2 K/uL (3.6-10.2)
[2018-09-14 07:34] LABS: ALANINE AMINOTRANSFERASE 85 U/L (16-63); ALKALINE PHOSPHATASE 154 U/L (50-136); ASPARTATE AMINOTRANSFERASE 80 U/L (15-37); BILIRUBIN,TOTAL 0.6 mg/dL (0.2-1.0); CARBON DIOXIDE 25 mmol/L (21-32); CHLORIDE 121 mmol/L (98-107); CREATININE 2.2 mg/dL (0.6-1.3); GLUCOSE 136 mg/dL (74-106); MAGNESIUM 1.9 mg/dL (1.8-2.4); PHOSPHOROUS 2.8 mg/dL (2.5-4.9); POTASSIUM 4.1 mmol/L (3.5-5.1); TOTAL PROTEIN, SERUM 6.5 g/dL (6.4-8.2); UREA NITROGEN, BLOOD 72 mg/dL (7-18)
[2018-09-14 07:59] VITALS: BP 153/70
[2018-09-14] MEDS: ASPIRIN 81 MG TAB.CHEW PO SCH (08:32)
[2018-09-14] MEDS: ASCORBIC ACID 500 MG TABLET PO SCH (08:32)
[2018-09-14] MEDS: SERTRALINE HCL 50 MG TABLET PO SCH (08:32)
[2018-09-14] MEDS: MULTIVIT, IRON, MIN NO. 8, FA TABLET PO SCH (08:32)
[2018-09-14] MEDS: CARVEDILOL 6.25 MG TABLET PO SCH ×2 (08:33→17:04)
[2018-09-14] MEDS: AMLODIPINE 5 MG TABLET PO SCH ×2 (08:33→20:52)
[2018-09-14] MEDS: AMIODARONE HCL 200 MG TABLET PO SCH (08:33)
[2018-09-14] MEDS ORDERED: Medication Not On Formulary EA (Multivitamins W-Minerals (Multivitamin With Minerals) 1 PO SCH (09:00)
[2018-09-14] MEDS ORDERED: Medication Not On Formulary EA (Ascorbic Acid (Vitamin C) 500 MG) PO SCH (09:00)
[2018-09-14] MEDS ORDERED: IV D5W 1000ML 1,000 ML IV ONE (10:30)
--- NOTE | 2018-09-14 11:03 | NUR ---
seen by devonte Robertson. orders received. D5W started at 50ml/hr via right hand #20 IV site Addendum: 09/14/18 at 1103 by AMBERLY MILLER RN Amended: Links added.
[2018-09-14 11:30] VITALS: BP 106/52
--- NOTE | 2018-09-14 15:03 | NUR ---
seen by Dr Triana, winifred tele status Addendum: 09/14/18 at 1503 by AMBERLY MILLER RN Amended: Links added.
[2018-09-14 15:59] VITALS: BP 116/56
--- NOTE | 2018-09-14 17:53 | NUR ---
family at the bedside. patient is more awake. Addendum: 09/14/18 at 1753 by AMBERLY MILLER RN Amended: Niko added. Addendum: 09/14/18 at 175 by AMBERLY MILLER RN Amended: Niko added. Addendum: 09/14/18 at 1754 by AMBERLY MILLER RN Amended: Links added.
--- NOTE | 2018-09-14 18:25 | NUR ---
placed on first step air mattress Addendum: 09/14/18 at 1825 by AMBERLY MILLER RN Amended: Links added.
--- NOTE | 2018-09-14 19:24 | NUR ---
REPORT GIVEN TO Anival KWONG Addendum: 09/14/18 at 1924 by AMBERLY MILLER RN Amended: Links added.
[2018-09-14 20:44] VITALS: BP 111/62
[2018-09-14] MEDS: CEFTRIAXONE 1 G in IV DEXTROSE 5% 50 ML IV SCH (20:51)
[2018-09-14] MEDS: DOCUSATE SODIUM 100 MG CAPSULE PO SCH (20:52)
[2018-09-14] MEDS: TRAZODONE 50 MG TABLET PO SCH (20:52)
[2018-09-14] MEDS: Z GUARD REMEDY PASTE 57 GM TUBE TOP SCH (20:53)
[2018-09-14] MEDS ORDERED: CEFEPIME HCL 1 G in IV DEXTROSE 5% 50 ML IV SCH (21:00)
[2018-09-14] MEDS ORDERED: VANCOMYCIN IV 1 G in PREMIXED 0 EACH IV ONE (22:30)
[2018-09-14] MEDS ORDERED: CEFEPIME HCL 1 G VIAL ONE (22:32)
[2018-09-14] MEDS: CEFEPIME HCL 1 G in IV DEXTROSE 5% 50 ML IV SCH (23:10)
[2018-09-14] MEDS ORDERED: VANCOMYCIN IV 200 ML ONE (23:45)
[2018-09-14] MEDS: ACETAMINOPHEN 325 MG TABLET PO PRN (23:57)
[2018-09-15 00:08] VITALS: BP 139/68
[2018-09-15 04:25] VITALS: BP 140/84
[2018-09-15] MEDS: PANTOPRAZOLE SODIUM 40 MG TABLET.DR PO SCH (06:42)
[2018-09-15 07:52] LABS: BASOPHILS % (AUTO) 0.3 % (0.0-2.0); EOSINOPHILS # (AUTO) 0.4 K/uL (0.0-0.7); EOSINOPHILS % (AUTO) 3.4 % (0.0-7.0); HEMOGLOBIN 11.6 g/dL (12.5-16.3); LYMPHOCYTES # (AUTO) 0.9 K/uL (20.0-40.0); LYMPHOCYTES % (AUTO) 8.1 % (20.5-51.5); MEAN CORPUSCULAR HEMOGLOBIN 29.8 uug (23.8-33.4); MEAN CORPUSCULAR HGB CONC 32 g/dL (32.5-36.3); MEAN CORPUSCULAR VOLUME 92.1 fL (73.0-96.2); MONOCYTES # (AUTO) 0.6 K/uL (2.0-10.0); MONOCYTES % (AUTO) 4.8 % (0.0-11.0); NEUTROPHILS # (AUTO) 9.7 K/uL (1.8-8.9); NEUTROPHILS % (AUTO) 83.4 % (38.5-71.5); PLATELET COUNT (AUTO) 317 K/uL (152-348); RED BLOOD CELL COUNT(AUTO) 3.91 MIL/uL (4.06-5.63); WHITE BLOOD COUNT (AUTO) 11.7 K/uL (3.6-10.2)
[2018-09-15 08:36] LABS: CARBON DIOXIDE 25 mmol/L (21-32); CHLORIDE 117 mmol/L (98-107); CREATININE 2.1 mg/dL (0.6-1.3); GLUCOSE 146 mg/dL (74-106); PHOSPHOROUS 2.7 mg/dL (2.5-4.9); POTASSIUM 4.4 mmol/L (3.5-5.1); UREA NITROGEN, BLOOD 66 mg/dL (7-18)
[2018-09-15] MEDS: CARVEDILOL 6.25 MG TABLET PO SCH ×2 (10:01→18:54)
[2018-09-15] MEDS: ASPIRIN 81 MG TAB.CHEW PO SCH (10:01)
[2018-09-15] MEDS: MULTIVIT, IRON, MIN NO. 8, FA TABLET PO SCH (10:02)
[2018-09-15] MEDS: AMLODIPINE 5 MG TABLET PO SCH ×2 (10:02→20:27)
[2018-09-15] MEDS: ASCORBIC ACID 500 MG TABLET PO SCH (10:02)
[2018-09-15] MEDS: AMIODARONE HCL 200 MG TABLET PO SCH (10:02)
[2018-09-15] MEDS: SERTRALINE HCL 50 MG TABLET PO SCH (10:03)
[2018-09-15] MEDS: Z GUARD REMEDY PASTE 57 GM TUBE TOP SCH ×2 (10:03→20:28)
--- NOTE | 2018-09-15 11:01 | NUR ---
Clinical pharmacy note-Vancomycin dosing per pharmacy Subjective: To start Vancomycin dosing on this patient for pneumonia objective: BUN 66 Scr 2.1 WBC 11.7 temp 100.1 Ht 170.18cm Wt 71.327kg Assessment/Plan: Patient had 1 gram Vancomycin last night at 2230. Since renal function is decreased, will start dosing by level for now. Next level is due tomorrow am (ordered). Will follow the level for further dosing.
[2018-09-15 11:19] VITALS: BP 146/68
[2018-09-15 15:10] VITALS: BP 144/74
[2018-09-15 20:26] VITALS: BP 133/76
[2018-09-15] MEDS: DOCUSATE SODIUM 100 MG CAPSULE PO SCH (20:27)
[2018-09-15] MEDS: TRAZODONE 50 MG TABLET PO SCH (20:28)
[2018-09-15] MEDS: CEFEPIME HCL 1 G in IV DEXTROSE 5% 50 ML IV SCH (22:26)
[2018-09-16 00:44] VITALS: BP 140/71
[2018-09-16 05:02] VITALS: BP 168/63
[2018-09-16] MEDS: ACETAMINOPHEN 325 MG TABLET PO PRN (05:15)
[2018-09-16] MEDS: PANTOPRAZOLE SODIUM 40 MG TABLET.DR PO SCH (06:43)
[2018-09-16 07:01] LABS: BASOPHILS % (AUTO) 0.2 % (0.0-2.0); EOSINOPHILS # (AUTO) 0.3 K/uL (0.0-0.7); EOSINOPHILS % (AUTO) 2.1 % (0.0-7.0); HEMATOCRIT 36.3 % (36.7-47.1); HEMOGLOBIN 11.4 g/dL (12.5-16.3); LYMPHOCYTES # (AUTO) 0.9 K/uL (20.0-40.0); LYMPHOCYTES % (AUTO) 7.1 % (20.5-51.5); MEAN CORPUSCULAR HEMOGLOBIN 29.2 uug (23.8-33.4); MEAN CORPUSCULAR HGB CONC 32 g/dL (32.5-36.3); MEAN CORPUSCULAR VOLUME 92.7 fL (73.0-96.2); MONOCYTES # (AUTO) 0.4 K/uL (2.0-10.0); MONOCYTES % (AUTO) 3.5 % (0.0-11.0); NEUTROPHILS # (AUTO) 10.7 K/uL (1.8-8.9); NEUTROPHILS % (AUTO) 87.1 % (38.5-71.5); PLATELET COUNT (AUTO) 330 K/uL (152-348); RED BLOOD CELL COUNT(AUTO) 3.92 MIL/uL (4.06-5.63); WHITE BLOOD COUNT (AUTO) 12.3 K/uL (3.6-10.2)
[2018-09-16 07:38] LABS: ALANINE AMINOTRANSFERASE 70 U/L (16-63); ALKALINE PHOSPHATASE 153 U/L (50-136); ASPARTATE AMINOTRANSFERASE 41 U/L (15-37); BILIRUBIN,TOTAL 0.6 mg/dL (0.2-1.0); CARBON DIOXIDE 26 mmol/L (21-32); CHLORIDE 117 mmol/L (98-107); CREATININE 2.1 mg/dL (0.6-1.3); GLUCOSE 145 mg/dL (74-106); PHOSPHOROUS 3.3 mg/dL (2.5-4.9); POTASSIUM 4.3 mmol/L (3.5-5.1); UREA NITROGEN, BLOOD 61 mg/dL (7-18); VANCOMYCIN,RANDOM 7.5 ug/mL (18.0-26.0)
[2018-09-16] MEDS: CARVEDILOL 6.25 MG TABLET PO SCH ×2 (08:42→17:32)
[2018-09-16] MEDS ORDERED: VANCOMYCIN IV 1 G in PREMIXED 0 EACH IV ONE (09:00)
[2018-09-16] MEDS: AMIODARONE HCL 200 MG TABLET PO SCH (09:31)
[2018-09-16] MEDS: ASCORBIC ACID 500 MG TABLET PO SCH (09:31)
[2018-09-16] MEDS: ASPIRIN 81 MG TAB.CHEW PO SCH (09:32)
[2018-09-16] MEDS: SERTRALINE HCL 50 MG TABLET PO SCH (09:32)
[2018-09-16] MEDS: MULTIVIT, IRON, MIN NO. 8, FA TABLET PO SCH (09:32)
[2018-09-16] MEDS: AMLODIPINE 5 MG TABLET PO SCH ×2 (09:32→20:23)
[2018-09-16] MEDS: Z GUARD REMEDY PASTE 57 GM TUBE TOP SCH ×2 (09:35→20:22)
[2018-09-16 11:15] VITALS: BP 123/63
--- NOTE | 2018-09-16 12:16 | NUR ---
Clinical pharmacy note-Vancomycin dosing per pharmacy Subjective: To continue Vancomycin dosing on this 88 yo male patient for pneumonia objective: BUN 61 Scr 2.1 WBC 12.3 temp 98.4 Vanco random level: 7.5 (on 09/16 0600 Post last dose of vanco 1gm IVPB x1 on 09/14 at 2230 Ht 170.18cm Wt 71.327kg Assessment/Plan: Since vanco random level is 7.5 mcg/ml, will give vanco 1gm IVPB x1 today at 0900. Will continue dosing by level for now. Next level is due tomorrow am (ordered). Will follow the level for further dosing.
[2018-09-16 15:19] VITALS: BP 98/58
[2018-09-16 19:53] VITALS: BP 146/66
[2018-09-16] MEDS: CULTURELLE CAPSULE PO SCH (20:23)
[2018-09-16] MEDS: TRAZODONE 50 MG TABLET PO SCH (20:23)
[2018-09-16] MEDS: DOCUSATE SODIUM 100 MG CAPSULE PO SCH (20:23)
[2018-09-16] MEDS ORDERED: FUROSEMIDE 20 MG/2 ML VIAL IV ONE (21:15)
[2018-09-16] MEDS: CEFEPIME HCL 1 G in IV DEXTROSE 5% 50 ML IV SCH (22:26)
[2018-09-17 04:00] VITALS: BP 100/58
[2018-09-17 05:13] VITALS: BP 100/58
[2018-09-17] MEDS: PANTOPRAZOLE SODIUM 40 MG TABLET.DR PO SCH (05:53)
[2018-09-17 07:23] LABS: CARBON DIOXIDE 28 mmol/L (21-32); CHLORIDE 116 mmol/L (98-107); CREATININE 2.2 mg/dL (0.6-1.3); GLUCOSE 167 mg/dL (74-106); MAGNESIUM 2.3 mg/dL (1.8-2.4); POTASSIUM 4.3 mmol/L (3.5-5.1); UREA NITROGEN, BLOOD 75 mg/dL (7-18); VANCOMYCIN,RANDOM 17.2 ug/mL (18.0-26.0)
[2018-09-17 07:41] LABS: BASOPHILS % (AUTO) 0.1 % (0.0-2.0); EOSINOPHILS # (AUTO) 0.3 K/uL (0.0-0.7); EOSINOPHILS % (AUTO) 2.7 % (0.0-7.0); HEMATOCRIT 38.2 % (36.7-47.1); HEMOGLOBIN 12.3 g/dL (12.5-16.3); LYMPHOCYTES # (AUTO) 0.7 K/uL (20.0-40.0); LYMPHOCYTES % (AUTO) 6.1 % (20.5-51.5); MEAN CORPUSCULAR HEMOGLOBIN 29.8 uug (23.8-33.4); MEAN CORPUSCULAR HGB CONC 32 g/dL (32.5-36.3); MEAN CORPUSCULAR VOLUME 92.4 fL (73.0-96.2); MONOCYTES # (AUTO) 0.4 K/uL (2.0-10.0); MONOCYTES % (AUTO) 3.7 % (0.0-11.0); NEUTROPHILS # (AUTO) 10.7 K/uL (1.8-8.9); NEUTROPHILS % (AUTO) 87.4 % (38.5-71.5); PLATELET COUNT (AUTO) 352 K/uL (152-348); RED BLOOD CELL COUNT(AUTO) 4.13 MIL/uL (4.06-5.63); WHITE BLOOD COUNT (AUTO) 12.2 K/uL (3.6-10.2)
[2018-09-17] MEDS: CARVEDILOL 6.25 MG TABLET PO SCH ×2 (08:00→18:27)
[2018-09-17] MEDS: AMLODIPINE 5 MG TABLET PO SCH ×2 (09:29→20:43)
[2018-09-17] MEDS: Z GUARD REMEDY PASTE 57 GM TUBE TOP SCH ×2 (09:34→20:44)
[2018-09-17] MEDS: ASCORBIC ACID 500 MG TABLET PO SCH (09:34)
[2018-09-17] MEDS: CULTURELLE CAPSULE PO SCH ×2 (09:34→20:43)
[2018-09-17] MEDS: ASPIRIN 81 MG TAB.CHEW PO SCH (09:34)
[2018-09-17] MEDS: AMIODARONE HCL 200 MG TABLET PO SCH (09:34)
[2018-09-17] MEDS: MULTIVIT, IRON, MIN NO. 8, FA TABLET PO SCH (09:34)
[2018-09-17] MEDS: SERTRALINE HCL 50 MG TABLET PO SCH (09:34)
[2018-09-17 11:40] VITALS: BP 109/36
--- NOTE | 2018-09-17 12:08 | NUR ---
Clinical pharmacy note-Vancomycin dosing per pharmacy Subjective: To continue Vancomycin dosing on this 88 yo male patient for pneumonia objective: BUN 75 Scr 2.2 WBC 12.2 temp 97.6 Vanco random level: 7.5 (on 09/16 0600 Post last dose of vanco 1gm IVPB x1 on 09/14 at 2230) Vanco random level: 17.2 (on 09/17 0600 , post one dose of vanco 1gm on 09/16 at 0900) Ht 170.18cm Wt 71.327kg Assessment/Plan: Since vanco random level is 17.2 mcg/ml, will give vanco 1gm IVPB x1 today at 1600. Will continue dosing by level for now. Next level is due tomorrow at 1800 (ordered). Will follow the level for further dosing.
[2018-09-17 16:00] VITALS: BP 100/48
[2018-09-17] MEDS ORDERED: VANCOMYCIN IV 1 G in PREMIXED 0 EACH IV ONE (16:00)
--- NOTE | 2018-09-17 18:50 | NUR ---
PATIENT ALERT BUT CONFUSED. , NO PAIN NOTED AND NO SOB NOTED PROVIDE SAFETY AT ALL TIMES, WILL CONTINUE TO MONITOR
[2018-09-17] MEDS: TRAZODONE 50 MG TABLET PO SCH (20:44)
[2018-09-17] MEDS: DOCUSATE SODIUM 100 MG CAPSULE PO SCH (20:44)
[2018-09-17] MEDS: CEFEPIME HCL 1 G in IV DEXTROSE 5% 50 ML IV SCH (23:16)
--- NOTE | 2018-09-18 03:30 | NUR ---
URINE COLLECTED AND SENT TO LAB ORDERED PER MD. ALL NEEDS ATTENDED.
[2018-09-18] MEDS: PANTOPRAZOLE SODIUM 40 MG TABLET.DR PO SCH (06:10)
[2018-09-18 07:12] LABS: *CLARITY,URINE CLEAR (CLEAR); *COLOR,URINE YELLOW (YELLOW)
[2018-09-18 07:13] LABS: UGLUCOSE NEGATIVE (NEGATIVE)
[2018-09-18 07:14] LABS: *KETONES,URINE NEGATIVE (NEGATIVE); *UROBILINOGEN,URINE 0.2 E.U./dl (NORMAL)
[2018-09-18 07:15] LABS: LEUKOCYTE ESTERASE ,URINE 1+ (NEGATIVE); NITRITE, URINE NEGATIVE (NEGATIVE)
[2018-09-18 07:16] LABS: *BILIRUBIN,URIN NEGATIVE (NEGATIVE); *BLOOD, URINE TRACE (NEGATIVE)
[2018-09-18 07:36] LABS: BASOPHILS % (AUTO) 0.4 % (0.0-2.0); EOSINOPHILS # (AUTO) 0.4 K/uL (0.0-0.7); EOSINOPHILS % (AUTO) 3.8 % (0.0-7.0); LYMPHOCYTES # (AUTO) 0.9 K/uL (20.0-40.0); LYMPHOCYTES % (AUTO) 8.6 % (20.5-51.5); MEAN CORPUSCULAR HEMOGLOBIN 28.9 uug (23.8-33.4); MEAN CORPUSCULAR HGB CONC 32 g/dL (32.5-36.3); MEAN CORPUSCULAR VOLUME 91.8 fL (73.0-96.2); MONOCYTES # (AUTO) 0.6 K/uL (2.0-10.0); MONOCYTES % (AUTO) 5.1 % (0.0-11.0); NEUTROPHILS # (AUTO) 9.1 K/uL (1.8-8.9); NEUTROPHILS % (AUTO) 82.1 % (38.5-71.5); PLATELET COUNT (AUTO) 390 K/uL (152-348); RED BLOOD CELL COUNT(AUTO) 3.82 MIL/uL (4.06-5.63); WHITE BLOOD COUNT (AUTO) 11.1 K/uL (3.6-10.2)
[2018-09-18 07:42] LABS: ALANINE AMINOTRANSFERASE 75 U/L (16-63); ALKALINE PHOSPHATASE 157 U/L (50-136); ASPARTATE AMINOTRANSFERASE 42 U/L (15-37); BILIRUBIN,TOTAL 0.3 mg/dL (0.2-1.0); CARBON DIOXIDE 26 mmol/L (21-32); CHLORIDE 116 mmol/L (98-107); CREATININE 2.3 mg/dL (0.6-1.3); GLUCOSE 172 mg/dL (74-106); MAGNESIUM 2.3 mg/dL (1.8-2.4); PHOSPHOROUS 2.2 mg/dL (2.5-4.9); POTASSIUM 4.2 mmol/L (3.5-5.1); TOTAL PROTEIN, SERUM 6.5 g/dL (6.4-8.2)
[2018-09-18 07:49] LABS: UREA NITROGEN, BLOOD 92 mg/dL (7-18)
--- NOTE | 2018-09-18 08:00 | NUR ---
PATIENT IS ALERT , CON FUSED, NO S/S OF PAIN AND PATIENT HOB ELEVATED, IV INTACT AND PATENT. PROVIDE SAFETY AND COMFORT AT ALL TIMES. WILL CONTINUE TO MONITOR AND CONTINUE PLAN OF CARE.
[2018-09-18] MEDS: ASCORBIC ACID 500 MG TABLET PO SCH (08:08)
[2018-09-18] MEDS: SERTRALINE HCL 50 MG TABLET PO SCH (08:08)
[2018-09-18] MEDS: MULTIVIT, IRON, MIN NO. 8, FA TABLET PO SCH (08:08)
[2018-09-18] MEDS: ASPIRIN 81 MG TAB.CHEW PO SCH (08:08)
[2018-09-18] MEDS: AMLODIPINE 5 MG TABLET PO SCH ×2 (08:09→20:48)
[2018-09-18] MEDS: AMIODARONE HCL 200 MG TABLET PO SCH (08:09)
[2018-09-18] MEDS: CARVEDILOL 6.25 MG TABLET PO SCH ×2 (08:09→18:00)
[2018-09-18] MEDS: CULTURELLE CAPSULE PO SCH ×2 (08:09→20:48)
[2018-09-18 08:24] LABS: BACTERIA,URINE FEW /HPF (NONE SEEN); SQUAMOUS EPITHELIAL CELL,UR NONE SEEN /HPF (NONE SEEN); WBC,URINE 20-50 /HPF (0-3)
[2018-09-18 08:25] LABS: RBC,URINE 0-3 /HPF (0-3)
[2018-09-18] MEDS: Z GUARD REMEDY PASTE 57 GM TUBE TOP SCH ×2 (08:29→20:56)
[2018-09-18 11:03] VITALS: BP 113/51
--- NOTE | 2018-09-18 12:01 | NUR ---
SEEN BY DOCTOR DR. GARVIN AND ORDERED IVF 1/2 NORMAL SALINE AT 60 ML/HR AND ASK DOCTOR IF I CAN GIVE THE PATIENT PRN ATIVAN BEFORE THE THORACENTESIS AND DOCTOR DECLINE PRE MEDICATION FOR THE PATIENT. Addendum: 09/18/18 at 1838 by SABRINA HARRISON RN DELETE THE FOLLOWING STATEMENT,"ASK DOCTOR VIRGIE, IF I CAN GIVE THE PATIENT PRN ATIVAN BEFORE THE THORACENTESIS AND DOCTOR DECLINE PRE MEDICATION FOR THE PATIENT." INTENDED FOR ANOTHER PATIENT.
[2018-09-18] MEDS: IV 1/2NS 1000 ML 1,000 ML IV PRN (12:09)
--- NOTE | 2018-09-18 12:44 | NUR ---
Clinical pharmacy note-Vancomycin dosing per pharmacy Subjective: To continue Vancomycin dosing on this 88 yo male patient for pneumonia objective: BUN 92 Scr 2.3 WBC 11.1 temp 97.8 Vanco random level: 7.5 (on 09/16 0600 Post last dose of vanco 1gm IVPB x1 on 09/14 at 2230) Vanco random level: 17.2 (on 09/17 0600 , post one dose of vanco 1gm on 09/16 at 0900) Ht 170.18cm Wt 71.327kg Assessment/Plan: Patient received vanco 1gm IVPB x1 on 09/17 at 1800 (was scheduled for 1600). Will continue dosing by level for now. Next level is due today at 1800 (ordered). Will follow the level for further dosing. Addendum: 09/18/18 at 1832 by RENATA AGUSTIN ADM RANDOM VANCOMYCIN LEVEL 18.8 WILL ORDER VANCOMYCIN 1GM IVPB FOR TONIGHT AND ANOTHER RANDOM LEVEL FOR TOMORROW EVENING
[2018-09-18 15:47] VITALS: BP 130/45
[2018-09-18] MEDS ORDERED: NEUTRA PHOS PACKET PO ONE (16:15)
--- NOTE | 2018-09-18 18:40 | NUR ---
PATIENT ALERT AND ORIENTED AND CONFUSED, HOB ELEVATED AND WATCHING TV, PROVIDED SAFETY AND AND COMFORT AT ALL TIMES , WILL CONTINUE TO MONITOR AND CONTINUE TREATMENT PLAN.
[2018-09-18 20:00] VITALS: BP 135/57
[2018-09-18] MEDS ORDERED: VANCOMYCIN IV 1 G in PREMIXED 0 EACH IV ONE (20:00)
--- NOTE | 2018-09-18 20:00 | NUR ---
RECEIVED PATIENT AWAKE AND RESTING IN BED. PATIENT IS ALERT AND ORIENTED X1. PATIENT IS RESTLESS BUT HAS NO OBVIOUS SIGNS OF ACUTE DISTRESS OR DISCOMFORT AT THIS TIME. ALL SAFETY AND FALL PRECAUTION MEASURES ARE IN PLACE. CALL LIGHT AND PERSONAL ITEMS ARE WITHIN REACH AT ALL TIMES.
[2018-09-18] MEDS: TRAZODONE 50 MG TABLET PO SCH (20:48)
[2018-09-18] MEDS: DOCUSATE SODIUM 100 MG CAPSULE PO SCH (20:48)
[2018-09-18] MEDS: CEFEPIME HCL 1 G in IV DEXTROSE 5% 50 ML IV SCH (23:06)
[2018-09-19] MEDS: IV 1/2NS 1000 ML 1,000 ML IV PRN (06:08)
[2018-09-19] MEDS: PANTOPRAZOLE SODIUM 40 MG TABLET.DR PO SCH (06:14)
[2018-09-19 06:20] LABS: BASOPHILS # (AUTO) 0.1 K/uL (0.0-8.0); BASOPHILS % (AUTO) 0.6 % (0.0-2.0); EOSINOPHILS # (AUTO) 0.5 K/uL (0.0-0.7); HEMATOCRIT 35.2 % (36.7-47.1); HEMOGLOBIN 11.4 g/dL (12.5-16.3); LYMPHOCYTES # (AUTO) 0.8 K/uL (20.0-40.0); LYMPHOCYTES % (AUTO) 8.4 % (20.5-51.5); MEAN CORPUSCULAR HEMOGLOBIN 29.5 uug (23.8-33.4); MEAN CORPUSCULAR HGB CONC 32 g/dL (32.5-36.3); MEAN CORPUSCULAR VOLUME 91.6 fL (73.0-96.2); MONOCYTES # (AUTO) 0.5 K/uL (2.0-10.0); MONOCYTES % (AUTO) 5.5 % (0.0-11.0); NEUTROPHILS # (AUTO) 7.6 K/uL (1.8-8.9); NEUTROPHILS % (AUTO) 80.5 % (38.5-71.5); PLATELET COUNT (AUTO) 403 K/uL (152-348); RED BLOOD CELL COUNT(AUTO) 3.85 MIL/uL (4.06-5.63); WHITE BLOOD COUNT (AUTO) 9.5 K/uL (3.6-10.2)
[2018-09-19 06:28] VITALS: BP 124/95
--- NOTE | 2018-09-19 06:34 | NUR ---
PATIENT SLEPT COMFORTABLY THROUGHOUT NIGHT WITHOUT ANY SIGNS/SYMPTOMS OF ACUTE DISTRESS OR DISCOMFORT NOTED OR OBSERVED. ALL PRESCRIBED MEDICATIONS PROVIDED ORDERED AND TOLERATED WELL. PRESCRIBED IV ANTIBIOTICS PROVIDED ORDERED WITH NO ADVERSE SIDE EFFECTS NOTED OR OBSERVED. SAFETY AND FALL PRECAUTION MEASURES REMAIN IN PLACE. CALL LIGHT AND PERSONAL ITEMS ARE WITHIN REACH AT ALL TIMES.
[2018-09-19 06:46] LABS: CARBON DIOXIDE 27 mmol/L (21-32); CHLORIDE 116 mmol/L (98-107); CREATININE 2.3 mg/dL (0.6-1.3); GLUCOSE 174 mg/dL (74-106); POTASSIUM 4.7 mmol/L (3.5-5.1)
[2018-09-19 06:52] LABS: UREA NITROGEN, BLOOD 91 mg/dL (7-18)
--- NOTE | 2018-09-19 07:20 | NUR ---
RECEIVED PATIENT IN BED AWAKE NON VERBAL CONFUSED AND DISORIENTED SEEMS RESTLESS MOVING IN BED HAS BILATERAL MITTENS TO PREVENT FROM PULLING OUT TUBES CIRCULATION CHECKED AND REPOSITIONED Q2H.REMAIN ON IVF ORDERED WITH NO S/S OF INFILTERATION ON SITE MADE COMFORTABLE WILL CONTINUE TO OBSERVE.
--- NOTE | 2018-09-19 08:11 | NUR ---
PATIENT SEEN AND EXAMINED BY DR CARMEN WITH NEW ORDERS AND NOTED AWAITING FOR THE PHARMACY TO VERIFY THE ORDER
[2018-09-19] MEDS: IV D5W 1000ML 1,000 ML IV SCH ×2 (09:09→22:58)
[2018-09-19] MEDS: CULTURELLE CAPSULE PO SCH ×2 (09:09→20:08)
[2018-09-19] MEDS: ASPIRIN 81 MG TAB.CHEW PO SCH (09:10)
[2018-09-19] MEDS: MULTIVIT, IRON, MIN NO. 8, FA TABLET PO SCH (09:10)
[2018-09-19] MEDS: ASCORBIC ACID 500 MG TABLET PO SCH (09:10)
[2018-09-19] MEDS: Z GUARD REMEDY PASTE 57 GM TUBE TOP SCH ×2 (09:10→20:09)
[2018-09-19] MEDS: SERTRALINE HCL 50 MG TABLET PO SCH (09:10)
[2018-09-19] MEDS: AMLODIPINE 5 MG TABLET PO SCH ×2 (09:11→20:08)
[2018-09-19] MEDS: AMIODARONE HCL 200 MG TABLET PO SCH (09:11)
[2018-09-19] MEDS: CARVEDILOL 6.25 MG TABLET PO SCH ×2 (09:16→18:18)
--- NOTE | 2018-09-19 11:00 | NUR ---
IV SITE INFILTERATED REMOVED AND RESTARTED TO HIS RIGHT FOREARM WRAPPED WITH KIRLIX AND CONTINUED WITH HIS IVF ORDERED.
[2018-09-19 11:52] VITALS: BP 93/46
--- NOTE | 2018-09-19 13:00 | NUR ---
PATIENTS DAUGHTER LALY MANSFIELD AND DR VIRGIE THORNTON SPOKE WITH HER PLAN OF CARE AND SHE EXPRESSED UNDERSTANDING.
--- NOTE | 2018-09-19 14:50 | NUR ---
Clinical pharmacy note-Vancomycin dosing per pharmacy Subjective: To continue Vancomycin dosing on this 88 yo male patient for pneumonia objective: BUN 91 Scr 2.3 WBC 9.5 temp 98.2 Vanco random level: 7.5 (on 09/16 0600 Post last dose of vanco 1gm IVPB x1 on 09/14 at 2230) Vanco random level: 17.2 (on 09/17 0600 , post one dose of vanco 1gm on 09/16 at 0900) Ht 170.18cm Wt 71.327kg Assessment/Plan: Patient received vanco 1gm IVPB x1 on 09/18 at 1999. Will continue dosing by level for now. Next level is due today at 1800 (ordered). Will follow the level for further dosing. Addendum: 09/19/18 at 1934 by FANNY VICK ADM VANCO LEVEL WAS 24.1 WILL HOLD THE VANCOMYCIN DOSE FOR TONIGHT AND WILL ORDER ANOTHER LEVEL FOR TOMORROW
[2018-09-19 15:05] VITALS: BP 114/53
[2018-09-19] MEDS ORDERED: NEUTRA PHOS PACKET PO ONE (16:30)
--- NOTE | 2018-09-19 18:00 | NUR ---
PHOS LEVEL IS 2.[address] THORNTON WITH NEW ORDERS AND NOTED.
--- NOTE | 2018-09-19 19:25 | NUR ---
RECEIVED PT ON BED. PT SHOWS NO SIGNS OF ACUTE DISTRESS. PT IV INTACT. PT WITH SOFT RESTRAINT BECAUSE PT PULLING HIS IV. PT ON FIRST STEP MATTRESS.SAFETY AND COMFORT PROVIDED. WILL CONTINUE TO MONITOR.
[2018-09-19 20:00] VITALS: BP 128/58
[2018-09-19] MEDS: DOCUSATE SODIUM 100 MG CAPSULE PO SCH (20:08)
[2018-09-19] MEDS: TRAZODONE 50 MG TABLET PO SCH (20:08)
[2018-09-19] MEDS: CEFEPIME HCL 1 G in IV DEXTROSE 5% 50 ML IV SCH (22:04)
[2018-09-20] MEDS: ACETAMINOPHEN 325 MG TABLET PO PRN (00:54)
[2018-09-20 05:16] VITALS: BP 147/78
[2018-09-20] MEDS: PANTOPRAZOLE SODIUM 40 MG TABLET.DR PO SCH (06:07)
--- NOTE | 2018-09-20 06:36 | NUR ---
PT SLEPT THROUGHOUT THE SHIFT. PT SHOWS NO SIGNS OF ACUTE DISTRESS. IV INTACT. PRESCRIBED MEDICATION GIVEN AND PT TOLERATED IT WELL. PT TURNED AND REPOSITIONED ACCORDINGLY. PT CONFUSED STILL TRYING TO TAKE OFF THE MITTEN BY BITING THE MITTEN . PT HAD ONE BOWEL MOVEMENT. SAFETY AND COMFORT PROVIDED. ALL NEEDS ARE MET. WILL ENDORSE ACCORDINGLY TO INCOMING NURSE FOR CONTINUITY OF CARE.
[2018-09-20 06:42] LABS: BASOPHILS % (AUTO) 0.4 % (0.0-2.0); CARBON DIOXIDE 27 mmol/L (21-32); CHLORIDE 113 mmol/L (98-107); CREATININE 2.2 mg/dL (0.6-1.3); EOSINOPHILS # (AUTO) 0.4 K/uL (0.0-0.7); EOSINOPHILS % (AUTO) 4.8 % (0.0-7.0); GLUCOSE 203 mg/dL (74-106); HEMATOCRIT 32.7 % (36.7-47.1); HEMOGLOBIN 10.7 g/dL (12.5-16.3); LYMPHOCYTES % (AUTO) 12.9 % (20.5-51.5); MAGNESIUM 2.1 mg/dL (1.8-2.4); MEAN CORPUSCULAR HEMOGLOBIN 29.8 uug (23.8-33.4); MEAN CORPUSCULAR HGB CONC 33 g/dL (32.5-36.3); MONOCYTES # (AUTO) 0.5 K/uL (2.0-10.0); MONOCYTES % (AUTO) 6.7 % (0.0-11.0); NEUTROPHILS # (AUTO) 5.9 K/uL (1.8-8.9); NEUTROPHILS % (AUTO) 75.2 % (38.5-71.5); PHOSPHOROUS 2.7 mg/dL (2.5-4.9); PLATELET COUNT (AUTO) 401 K/uL (152-348); RED BLOOD CELL COUNT(AUTO) 3.59 MIL/uL (4.06-5.63); UREA NITROGEN, BLOOD 71 mg/dL (7-18); VANCOMYCIN,RANDOM 19.9 ug/mL (18.0-26.0); WHITE BLOOD COUNT (AUTO) 7.9 K/uL (3.6-10.2)
--- NOTE | 2018-09-20 07:30 | NUR ---
PATIENT IS ASLEEP AT THIS TIME EASILY AROUSABLE ON ROUNDS BUT MUMBLES AND GABLED AND UNABLE TO UNDERSTAND HIM.PATIENT IS CONFUSED AND DISORIENTED AND TOTALLY DEPENDENT ON NURSES FOR ALL ADL TURNED AND REPOSITIONED Q2H ON IVF WITH NO S/S OF INFILTERATION ON SITE MADE COMFORTABLE AND WILL CONTINUE TO OBSERVE.
[2018-09-20] MEDS: AMLODIPINE 5 MG TABLET PO SCH ×2 (08:50→20:56)
[2018-09-20] MEDS: ASPIRIN 81 MG TAB.CHEW PO SCH (08:50)
[2018-09-20] MEDS: ASCORBIC ACID 500 MG TABLET PO SCH (08:51)
[2018-09-20] MEDS: SERTRALINE HCL 50 MG TABLET PO SCH (08:51)
[2018-09-20] MEDS: AMIODARONE HCL 200 MG TABLET PO SCH (08:51)
[2018-09-20] MEDS: MULTIVIT, IRON, MIN NO. 8, FA TABLET PO SCH (08:51)
[2018-09-20] MEDS: CULTURELLE CAPSULE PO SCH ×2 (08:51→20:55)
[2018-09-20] MEDS: CARVEDILOL 6.25 MG TABLET PO SCH ×2 (08:51→17:15)
[2018-09-20] MEDS: Z GUARD REMEDY PASTE 57 GM TUBE TOP SCH ×2 (08:52→20:57)
[2018-09-20] MEDS: IV D5W 1000ML 1,000 ML IV SCH (08:57)
--- NOTE | 2018-09-20 08:58 | NUR ---
IV BAG STILL HAS 200 ML IN THE BAG.
[2018-09-20 11:05] VITALS: BP 119/58
[2018-09-20] MEDS: IV D5W 1000ML 1,000 ML IV PRN (11:52)
--- NOTE | 2018-09-20 13:29 | NUR ---
Clinical pharmacy note-Vancomycin dosing per pharmacy Subjective: To continue Vancomycin dosing on this 88 yo male patient for pneumonia objective: BUN 71 Scr 2.2 WBC 7.9 temp 98.4 Rachel random level: 19.9 with am labs Ht 170.18cm Wt 71.327kg Assessment/Plan: Rachel last received 1gm IVPB x1 on 09/18 at 1999. As today's level border line high and renal function has not improved, will hold dose today and next random with am labs. Will check in am and re-dose as needed. Will follow
[2018-09-20 15:03] VITALS: BP 114/52
--- NOTE | 2018-09-20 15:48 | NUR ---
REMAIN CONFUSED AND DISORIENTED GRABS CONTINUE TO REQUIRE MITTENS PATIENT IS ATTEMPTING TO PULL OUT TUBES CIRCULATION CHECKED Q2H.MADE COMFORTABLE WILL CONTINUE TO OBSERVE
--- NOTE | 2018-09-20 17:59 | NUR ---
REMAIN CONFUSED AND DISORIENTED TOTALLY DEPENDENT FOR ALL ADL CONTINUE ON IVF ORDERED WITH IV SITE RIGHT FOREARM INTACT WITH LEANDER MITTENS TO PREVENT FROM PULLING OUT TUBES.CIRCULATION CHECKED Q2H MADE COMFORTABLE
[2018-09-20 20:00] VITALS: BP 140/62
--- NOTE | 2018-09-20 20:00 | NUR ---
Pt. is resting in bed, responds to verbal stimuli and touch and follows simple commands. Pt. has IV on R. forearm intact, patent, running fluids prescribed and wrapped with kerlix due to pt. attempting to pull at IV site. Pt. has bilateral soft mittens on. Pt. is pulling at mittens. Will assess every 2 hours and visual checks every 15 minutes. HOB elevated. Will continue to monitor.
[2018-09-20] MEDS: TRAZODONE 50 MG TABLET PO SCH (20:55)
[2018-09-20] MEDS: DOCUSATE SODIUM 100 MG CAPSULE PO SCH (20:55)
[2018-09-20] MEDS: CEFEPIME HCL 1 G in IV DEXTROSE 5% 50 ML IV SCH (23:32)
[2018-09-21] MEDS: IV D5W 1000ML 1,000 ML IV PRN (02:25)
[2018-09-21 05:49] VITALS: BP 110/61
[2018-09-21] MEDS: PANTOPRAZOLE SODIUM 40 MG TABLET.DR PO SCH (06:54)
[2018-09-21 07:00] LABS: CARBON DIOXIDE 25 mmol/L (21-32); CHLORIDE 108 mmol/L (98-107); CREATININE 2.2 mg/dL (0.6-1.3); GLUCOSE 183 mg/dL (74-106); POTASSIUM 5.3 mmol/L (3.5-5.1); UREA NITROGEN, BLOOD 65 mg/dL (7-18)
--- NOTE | 2018-09-21 07:36 | NUR ---
Pt. is awake in bed, responds to verbal stimuli and touch and follows simple commands. Pt. has IV on R. forearm intact, patent, running fluids prescribed and wrapped with kerlix. Pt. has bilateral soft mittens on. Pt. is pulling at mittens. Safety measures in place. Will endorse to AM nurse
[2018-09-21] MEDS: ASPIRIN 81 MG TAB.CHEW PO SCH (08:39)
[2018-09-21] MEDS: ASCORBIC ACID 500 MG TABLET PO SCH (08:41)
[2018-09-21] MEDS: AMIODARONE HCL 200 MG TABLET PO SCH (08:41)
[2018-09-21] MEDS: SERTRALINE HCL 50 MG TABLET PO SCH (08:41)
[2018-09-21] MEDS: CULTURELLE CAPSULE PO SCH (08:41)
[2018-09-21] MEDS: CARVEDILOL 6.25 MG TABLET PO SCH (08:42)
[2018-09-21] MEDS: AMLODIPINE 5 MG TABLET PO SCH (08:43)
[2018-09-21] MEDS: Z GUARD REMEDY PASTE 57 GM TUBE TOP SCH (08:53)
[2018-09-21] MEDS ORDERED: VANCOMYCIN IV 1 G in PREMIXED 0 EACH IV ONE (09:00)
[2018-09-21] MEDS: MULTIVIT, IRON, MIN NO. 8, FA TABLET PO SCH (09:50)
--- NOTE | 2018-09-21 10:00 | NUR ---
Received patient awake in bed. Patient is confused and disoriented. Garbled speech and moans occasionally. No acute distress noted. IV on R FA intact and patent with IVF running. Bed bound on air mattress. Scab on BLE noted. Tolerated medications crushed in pudding. Will continue to monitor throughout shift.
[2018-09-21 11:39] VITALS: BP 120/60
[2018-09-21] MEDS ORDERED: SODIUM POLYSTYRENE SULFONATE 15 G/60 ML LIQUID UDC PO ONE (13:30)
--- NOTE | 2018-09-21 13:51 | NUR ---
Clinical pharmacy note-Vancomycin dosing per pharmacy Subjective: To continue Vancomycin dosing on this 88 yo male patient for pneumonia objective: BUN 65 Scr 2.2 WBC 7.9 (09/20) temp 98.5 Vanco random level: 15.2 with am labs Ht 170.18cm Wt 71.327kg Assessment/Plan: As renal function remains decreased, will continue dosing per levels. Per today's random, dosed another 1gm vanco today at 0900. Will check Scr in am and decide when to order next random. Will follow
[2018-09-21 16:03] VITALS: BP 118/57
--- NOTE | 2018-09-21 16:50 | NUR ---
Patient discharged back to [facility] via ambulance. No acute distress noted. VSS. No change in status. Report given to facility manager staffing. Continue plan of care.
== END 2018-09-21 14:50 | DRG 871 ==
LOC: MEDSURG3 11:58 → TELE3 12:01 → TELE-TD3 14:46 → TELE3 09-14 15:06 → MEDSURG3 09-16 21:20
PROVIDERS: ADMIT Internal Medicine; ATTEND Internal Medicine
DX: A41.9 Sepsis, unspecified organism (principal); J69.0 Pneumonitis due to inhalation of food and vomit; N17.0 Acute kidney failure with tubular necrosis; I50.23 Acute on chronic systolic (congestive) heart failure; E43 Unspecified severe protein-calorie malnutrition; G92 Toxic encephalopathy; I21.4 Non-ST elevation (NSTEMI) myocardial infarction; E87.0 Hyperosmolality and hypernatremia; I13.0 Hypertensive heart and chronic kidney disease with heart failure and stage 1 through stage 4 chronic kidney disease, or unspecified chronic kidney disease; D68.59 Other primary thrombophilia; F01.51 Vascular dementia, unspecified severity, with behavioral disturbance; R65.20 Severe sepsis without septic shock; E87.5 Hyperkalemia; I48.0 Paroxysmal atrial fibrillation; Z66 Do not resuscitate; E11.22 Type 2 diabetes mellitus with diabetic chronic kidney disease; N18.9 Chronic kidney disease, unspecified; Z68.24 Body mass index [BMI] 24.0-24.9, adult; Z74.09 Other reduced mobility; M19.90 Unspecified osteoarthritis, unspecified site; Z86.73 Personal history of transient ischemic attack (TIA), and cerebral infarction without residual deficits; R13.10 Dysphagia, unspecified; R74.0 Nonspecific elevation of levels of transaminase and lactic acid dehydrogenase [LDH]; I34.0 Nonrheumatic mitral (valve) insufficiency; E11.65 Type 2 diabetes mellitus with hyperglycemia; Z79.4 Long term (current) use of insulin; J32.0 Chronic maxillary sinusitis; K21.9 Gastro-esophageal reflux disease without esophagitis; D64.9 Anemia, unspecified; B96.89 Other specified bacterial agents as the cause of diseases classified elsewhere; I25.10 Atherosclerotic heart disease of native coronary artery without angina pectoris
CPT/HCPCS: 36415; 70030-TC; 71045; 83735; 84100; 85025; 87086; A4663; C1758; G0378; J0692; J0696; J1940; J3370; J3490; J7030; J7042; J7060; J7070